=== PATIENT | female | born 1995 | race Caucasian/White ===

== ENCOUNTER 2025-09-02 06:47 | Emergency (ER) | payer MEDICAID ==
[~2025-09-02] VITALS: Ht 157.5 cm; Wt 95.1 kg
[2025-09-02 06:58] VITALS: O2SAT 98
[2025-09-02 08:52] LABS: BASOPHILS % 0.4 % (0.0-2.0); EOSINOPHILS % 0.7 % (0.0-5.0); HEMATOCRIT. 42.9 % (36.0-48.0); HEMOGLOBIN. 13.7 g/dL (12.0-16.0); LYMPHOCYTES % 27.9 % (20.0-50.0); MEAN PLATELET VOLUME 7.9 fl (7.4-10.4); MONOCYTES % 6.7 % (2.0-8.0); NEUTROPHILS % 64.3 % (40.0-76.0); PLATELET 312 x1000/uL (130-400); RED BLOOD CELL COUNT 5.11 mill/uL (4.2-5.4); RED CELL DISTRIBUTION WIDTH 14.2 % (11.6-14.6)
[2025-09-02 09:13] LABS: CREATININE 0.6 mg/dL (0.6-1.0); UREA NITROGEN BLOOD 6 mg/dL (9-23)
[2025-09-02] MEDS: ACETAMINOPHEN 325MG TABLET PO ONE (09:15)
[2025-09-02 09:17] LABS: CLARITY URINE CLEAR (CLEAR); COLOR URINE YELLOW (YELLOW); GLUCOSE URINE NEGATIVE (NEGATIVE); KETONES URINE NEGATIVE (NEGATIVE); LEUKOCYTE ESTERASE URINE NEGATIVE (NEGATIVE); NITRITE URINE NEGATIVE (NEGATIVE); OCCULT BLOOD URINE NEGATIVE (NEGATIVE); PH URINE 7.0 (4.5-8.0); PROTEIN URINE NEGATIVE (NEGATIVE); SPECIFIC GRAVITY URINE 1.017 (1.005-1.030); UROBILINOGEN URINE 0.2 E.U./dL (0.2-1.0)
[2025-09-02 09:22] LABS: HCG SCREEN POSITIVE
[2025-09-02 09:28] LABS: B-HCG QUANTITATIVE 51127 mIU/mL (<6)
[2025-09-02 09:30] VITALS: BP 120/63; PULSE 61; RESP 18; TEMP 36.8; O2SAT 98
[2025-09-02] MEDS ORDERED: TOPUD PO (09:31)
== END 2025-09-02 09:54 | disposition home or self-care (01) ==
LOC: ER 06:47
DX: O26.891 Other specified pregnancy related conditions, first trimester (principal); M54.50 Low back pain, unspecified; N89.8 Other specified noninflammatory disorders of vagina; M19.90 Unspecified osteoarthritis, unspecified site; Z3A.01 Less than 8 weeks gestation of pregnancy
CPT/HCPCS: 80048; 81003; 81025; 84703; 84702; 85025; 86850; 86900; 86901; 36415; 76801; 76817; 99284; Z7610

== ENCOUNTER 2025-10-18 07:05 | Emergency (ER) | payer MEDICAID ==
[~2025-10-18] VITALS: Ht 154.9 cm; Wt 105.0 kg
[~2025-10-18 07:05] MED LIST: TOPUD PO
[2025-10-18 07:13] VITALS: O2SAT 99
[2025-10-18 07:26] VITALS: BP 137/74; PULSE 69; RESP 16; TEMP 36.7; O2SAT 99
[2025-10-18] MEDS ORDERED: P50 MT (08:32)
== END 2025-10-18 08:50 | disposition home or self-care (01) ==
LOC: ER 07:05
DX: O99.352 Diseases of the nervous system complicating pregnancy, second trimester (principal); O26.892 Other specified pregnancy related conditions, second trimester; G51.0 Bell's palsy; Z3A.14 14 weeks gestation of pregnancy
CPT/HCPCS: 99283